=== PATIENT | male | born 1995 | race Caucasian/White ===

== ENCOUNTER 2020-09-14 08:53 | Emergency (ER) | payer OTHER, BC, SELFPAY ==
--- NOTE | ~2020-09-14 | XR_ITS ---
EXAMINATION: XR ankle RT min 3V DATE: 09/14/2020 09:22 INDICATION: Right ankle injury. TECHNIQUE: 4 views of right ankle were obtained. COMPARISON: None. FINDINGS: There is an oblique fracture of distal fibula with medial aspect of the fracture line 2.4 c m proximal to the level of the tibial plafond. The distal fracture fragment demonstrates 3 mm posteri or displacement. There is a nondisplaced fracture of the posterior malleolus. There is widening of th e medial ankle mortise, consistent with deltoid ligament tear. The talar dome is normal. There is ank le soft tissue swelling. IMPRESSION: 1. Fractures of the lateral and posterior malleoli and deltoid ligament tear. Reviewed, dictated and finalized at location A. ER OPERATOR
[2020-09-14 09:15] VITALS: BP 148/84; PULSE 107; RESP 16; TEMP 37.4; O2SAT 99
--- NOTE | 2020-09-14 09:34 | ED.LOWEXIN ---
HPI - Extremity Injury (Lower) General Chief Complaint: Extremity Injury, Lower Stated Complaint: right ankle injury Time Seen by Provider: 09/14/20 09:22 Source: patient and RN notes reviewed Mode of arrival: wheelchair Limitations: no limitations History of Present Illness HPI Narrative: 24 year old male who presents to [facility] care with complaints of slipping on ice last night at around 1730 while at work for [employer]. Patient states that he slipped on ice and he thinks he had inversion of his right ankle with popping sensation felt. Patient is unable to apply any weight to his right foot, swelling is present to the lateral aspect of his right ankle with pain upon any palpation. Patient has strong pedal pulse and posterior tibial pulse to right foot, nail beds jim briskly with no complaints of tingling or numbness to his right foot. MD complaint: ankle injury Onset (ago): day(s) (yesterday at around 1730) Injury: Right: ankle Type of Injury: inversion and other (Slipped on ice) Place: work and street/outdoors Severity: moderate Severity scale (1-10): 5 Relieving factors: nothing Exacerbating factors: movement and palpation Context: fall Associated symptoms: snap/pop sensation, swelling and unable to bear weight Other symptoms: none Treatments prior to arrival: cold therapy, NSAIDS and other (Aleve,Tylenol, elevation) Related Data Allergies Allergy/AdvReac Type Severity Reaction Status Date / Time No Known Allergies Allergy Verified 09/14/20 09:49 Review of Systems Review of Systems: Narrative: CONSTITUTIONAL: Denies fever, chills, or sweats. EYES: Denies visual changes, redness, or discharge. ENT: Denies rhinorrhea, congestion, sore throat, or otalgia. CARDIOVASCULAR: Denies chest pain, palpitations, or edema. RESPIRATORY: Denies cough or dyspnea. GASTROINTESTINAL: Denies abdominal pain, nausea, vomiting, or diarrhea. GENITOURINARY: Denies dysuria or hematuria. SKIN: Denies rash or itching. MUSCULOSKELETAL: Denies back pain,pain to posterior and lateral ankle joint pain, with swelling or myalgia. NEUROLOGIC: Denies headache, numbness, or weakness. PSYCHIATRIC: Denies anxiety or depression. All systems reviewed & are unremarkable except as noted in HPI and below PMFSH Past Medical History Medical History (Updated 09/14/20 @ 10:42 by Magy Norwood NP) Seasonal allergies Surgical History Surgical History (Updated 09/14/20 @ 10:42 by Magy Norwood NP) [place] teeth extracted Family History Family History (Updated 09/14/20 @ 10:52 by Magy Norwood NP) Mother Breast cancer Grandparent Ovarian cancer Sibling Psoriasis Social History Social History (Updated 09/14/20 @ 10:42 by Magy Norwood NP) Smoking status: Never smoker Alcohol intake: current Alcohol use details: Social Substance use: never Living arrangements: with family Gender identity (if verbalized by the patient): Male Comments At time of signature, agree with nursing past medical, surgical, social and family history. There is no relevant family history pertinent to the presenting complaint Exam Narrative: Exam Narrative: GENERAL: Well-appearing, well-nourished, and in no acute distress. HEAD: Normocephalic, atraumatic. EYES: PERRLA and EOMI. ENT: Nares clear, no rhinorrhea or epistaxis. Mucous membranes moist. NECK: Supple.no lymphadenopathy CHEST: Clear to auscultation. No respiratory distress.SAO2 99% on room air HEART: Regular rate and rhythm. No murmur heard. Normal peripheral pulses. ABDOMEN: Soft, nontender, nondistended, normal active bowel sounds. EXTREMITIES: Normal range of motion. No edema with exception to lateral right ankle with pain and inability to bear weight to right foot after experiencing fall yesterday evening on ice. Patient has identified fractures per x-ray with torn ligament Patient has strong pulses to right foot with no tingling or numbness. SKIN: Warm, dry, no fredi
== END 2020-09-14 10:40 | disposition home or self-care (01) ==
PROVIDERS: Emergency Provider Registered Nurse
DX: S82.891A Other fracture of right lower leg, initial encounter for closed fracture (principal); W18.49XA Other slipping, tripping and stumbling without falling, initial encounter; Y99.0 Civilian activity done for income or pay
CPT/HCPCS: 29515; 73610; 99214; G0463